=== PATIENT | male | born 1970 | race Caucasian/White ===

== ENCOUNTER 2017-01-18 19:41 | Emergency (ER) | payer OTHER ==
[~2017-01-18] VITALS: Ht 182.9 cm; Wt 80.0 kg
[~2017-01-18 19:41] MED LIST: PROT40TA PO
[2017-01-18 19:49] VITALS: BP 139/91; PULSE 59; RESP 16; TEMP 98; O2SAT 100
[2017-01-18] MEDS ORDERED: SODIUM CHLORIDE 0.9% FLUSH 10 ML FLUSH IV FLUSH PRN (21:30)
--- NOTE | 2017-01-18 21:53 | PD ---
HPI Chief Complaint: Flank/Kidney Pain Time Seen by Provider: 21:26 Travel History International Travel<30 days: No Contact w/Intl Traveler<30days: No Traveled to known affect area: No History of Present Illness HPI 46 yo M c/o RUQ pain with radiation to the high R flank for about 1 week. No fever. No n/v. No diarrhea. No dyspnea. Onset gradual. Timing constant. It is slightly worse with palpation. Pt underwent R renal sonogram to rule out renal stone, which yielded negative results. Severity moderate now. Pt denies visible hematuria. Pt reports trace RBCs on outpatient testing. PFSH Past Medical History Cancer: Yes (skin) Cardiovascular Problems: No Diabetes: No Endocrine: No Gastrointestinal Disorders: Yes (heartburn) Genitourinary: No Hepatitis: No Hiatal Hernia: No Immune Disorder: No Musculoskeletal: No Neurologic: No Psychiatric: No Respiratory: Yes (sleep apnea) Thyroid Disease: No Past Surgical History AICD: No Genitourinary Surgery: Yes (vasectomy) Joint Replacement: No Oral Surgery: Yes Pacemaker: No Other Surgery: Yes (SKIN CA REMOVED) Social History Alcohol Use: No Tobacco Use: No Substance Use: No Allergies-Medications (Allergen,Severity, Reaction): Coded Allergies: No Known Allergies (Unverified , 01/18/17) Reported Meds & Prescriptions Reported Meds & Active Scripts Active Lortab (Hydrocodone-Acetaminophen) 5-325 Mg Tab 1-2 Tab PO Q6H PRN Review of Systems Except as stated in HPI: all other systems reviewed are Neg General / Constitutional: No: Fever Physical Exam Narrative GENERAL: 46 yo M, WNWD, NAD SKIN: Warm and dry. HEAD: Atraumatic. Normocephalic. EYES: Pupils equal and round. No scleral icterus. No injection or drainage. ENT: No nasal bleeding or discharge. Mucous membranes pink and moist. NECK: Trachea midline. No JVD. CARDIOVASCULAR: Regular rate and rhythm. RESPIRATORY: No accessory muscle use. Clear to auscultation. Breath sounds equal bilaterally. GASTROINTESTINAL: Soft. Minimal tenderness to percussion R flank. MUSCULOSKELETAL: Extremities without clubbing, cyanosis, or edema. No obvious deformities. NEUROLOGICAL: Awake and alert. No obvious cranial nerve deficits. Motor grossly within normal limits. Five out of 5 muscle strength in the arms and legs. Normal speech. PSYCHIATRIC: Appropriate mood and affect; insight and judgment normal. Data Data Last Documented VS Vital Signs Date Time Temp Pulse Resp B/P (MAP) Pulse Ox O2 Delivery O2 Flow Rate FiO2 01/18/17 23:09 01/18/17 19:49 98.0 59 16 100 Room Air VS reviewed Orders Orders Complete Blood Count With Diff (01/18/17 21:26) Comprehensive Metabolic Panel (01/18/17 21:26) Lipase (01/18/17 21:26) Urinalysis - C+S If Indicated (01/18/17 21:) Ct Abd/Pel W/O Iv Contrast (01/18/17 21:26) Iv Access Insert/Monitor (01/18/17 21:) Sodium Chloride 0.9% Flush (Ns Flush) (01/18/17 21:30) Labs Laboratory Tests Test 01/18/17 21:28 01/18/17 21:30 White Blood Count 5.7 TH/MM3 Red Blood Count 4.89 MIL/MM3 Hemoglobin 14.0 GM/DL Hematocrit 42.1 % Mean Corpuscular Volume 86.2 FL Mean Corpuscular Hemoglobin 28.6 PG Mean Corpuscular Hemoglobin Concent 33.2 % Red Cell Distribution Width 14.1 % Platelet Count 144 TH/MM3 Mean Platelet Volume 10.3 FL Neutrophils (%) (Auto) 55.5 % Lymphocytes (%) (Auto) 34.3 % Monocytes (%) (Auto) 7.8 % Eosinophils (%) (Auto) 1.8 % Basophils (%) (Auto) 0.6 % Neutrophils # (Auto) 3.2 TH/MM3 Lymphocytes # (Auto) 2.0 TH/MM3 Monocytes # (Auto) 0.4 TH/MM3 Eosinophils # (Auto) 0.1 TH/MM3 Basophils # (Auto) 0.0 TH/MM3 CBC Comment DIFF FINAL Differential Comment Blood Urea Nitrogen 28 MG/DL Creatinine 0.89 MG/DL Random Glucose 118 MG/DL Total Protein 7.2 GM/DL Albumin 3.6 GM/DL Calcium Level 8.6 MG/DL Alkaline Phosphatase 74 U/L Aspartate Amino Transf (AST/SGOT) 18 U/L Alanine Aminotransferase (ALT/SGPT) 28 U/L Total Bilirubin 0.4 MG/DL Sodium Level 142 MEQ/L Potassium Level 4.2 MEQ/L Chloride Level 107 MEQ/L Carbon Dioxide Level 29.4 MEQ/L Anion Gap 6 MEQ/L Estimat Glomerular Filtration Rate 92 ML/MIN Lipase 252 U/L Urine Color YELLOW Urine Turbidity CLEAR Urine pH 5.5 Urine Specific Marcus 1.021 Urine Protein NEG mg/dL Urine Glucose (UA) NEG mg/dL Urine Ketones NEG mg/dL Urine Occult Blood SMALL Urine Nitrite NEG Urine Bilirubin NEG Urine Urobilinogen LESS THAN 2.0 MG/DL Urine Leukocyte Esterase NEG Urine RBC 6 /hpf Microscopic Urinalysis Comment CULT NOT INDICATED MDM Medical Decision Making Medical Screen Exam Complete: Yes Emergency Medical Condition: Yes Medical Record Reviewed: Yes Differential Diagnosis hepatobiliary dz, renal stone, pna, constipation Narrative Course CBC & BMP Diagram 01/18/17 21:28 Total Protein 7.2, Albumin 3.6, Calcium Level 8.6, Alkaline Phosphatase 74, Aspartate Amino Transf (AST/SGOT) 18, Alanine Aminotransferase (ALT/SGPT) 28, Total Bilirubin 0.4 Lipase normal Last 24 hours Impressions Abdomen/Pelvis CT 01/18/172125 Signed Impressions: Service Date/Time: Wednesday, January 18, 2017 21:46 - CONCLUSION: 1. No acute findings. Postoperative gastric sleeve procedure. No renal calculi or obstructive uropathy. 2. Indeterminate 9 mm exophytic lesion lower pole left kidney. Differential diagnosis includes a complex cyst or small solid lesion. This could be followed sonographically as an outpatient. Efrem Garcia MD L renal lesion discussed with patient and necessity of follow up discussed. Pt verbalized understanding and agreement to follow up. The patient is resting comfortably and feels better, is alert and in no distress. The patients results and examination findings were discussed. The repeat examination is unremarkable and benign. The history, exam, diagnostic testing, and current condition do not suggest any significant pathology to warrant further testing, continued ED treatment, admission, or surgical evaluation at this point. The vital signs have been stable. The patient does not have uncontrollable pain, intractable vomiting, or other significant symptoms. The patient's condition is stable and appropriate for discharge. The patient will pursue further outpatient evaluation with a primary care physician or other designated or consulting physician as indicated in the discharge instructions. The patient expressed understanding and was agreeable with this plan. Diagnosis Primary Impression: RUQ pain Additional Impressions: Right flank pain Left kidney mass Referrals: Primary Care Physician 2 days Additional Instructions: PLEASE FOLLOW UP WITH DR DAVIS FOR ADDITIONAL WORK UP FOR LEFT KIDNEY MASS. Med/Other Pt SpecificInfo: Prescription(s) given Scripts Hydrocodone-Acetaminophen (Lortab) 5-325 Mg Tab 1-2 TAB PO Q6H Y for PAIN SCALE 6 TO 10, #20 TAB 0 Refills Prov: Az Chapin MD 01/18/17 Disposition: 01 DISCHARGE HOME Condition: Stable Az Chapin MD Jan 18, 2017 21:53
[2017-01-18 22:11] LABS: BLOOD, URINE SMALL (NEG); COMMENT (UR) CULT NOT INDICATED; CULTURE IF INDICATED CULT NOT INDICATED; GLUCOSE,URINE NEG (NEG); KETONE, URINE NEG (NEG); NITRITE,URINE NEG (NEG); PH, URINE 5.5 (5.0-8.5); URINE COLOR YELLOW (YELLW/STRAW)
[2017-01-18 22:14] LABS: AUTOMATED NEUTROPHIL # 3.2 TH/MM3 (1.8-7.7); BASOPHIL % 0.6 % (0.0-2.0); EOSINOPHIL # 0.1 TH/MM3 (0-0.4); EOSINOPHIL % 1.8 % (0.0-4.0); HEMATOCRIT 42.1 % (39.0-51.0); HEMO FLAGS DIFF FINAL; LYMPH % 34.3 % (9.0-44.0); MEAN CELL VOLUME 86.2 FL (80.0-100.0); MEAN CORPUSCULAR HEMOGLOBIN 28.6 PG (27.0-34.0); MEAN CORPUSCULAR HGB CONC 33.2 % (32.0-36.0); MONO % 7.8 % (0.0-8.0); NEUT % 55.5 % (16.0-70.0); PLATELET COUNT 144 TH/MM3 (150-450); RED BLOOD COUNT 4.89 MIL/MM3 (4.50-5.90); RED CELL DISTRIBUTION WIDTH 14.1 % (11.6-17.2); WHITE BLOOD COUNT 5.7 TH/MM3 (4.0-11.0)
--- NOTE | 2017-01-18 22:15 | RADRPT ---
EXAM DATE/TIME: 01/18/2017 21:46 [facility] COMPARISON: No previous studies available for comparison. INDICATIONS : Right flank pain. ORAL CONTRAST: No oral contrast ingested. RADIATION DOSE: 8.99 CTDIvol (mGy) MEDICAL HISTORY : None SURGICAL HISTORY : Gastric sleeve procedure ENCOUNTER: Initial ACUITY: 1 week PAIN SCALE: 8/10 LOCATION: Right flank TECHNIQUE: Volumetric scanning of the abdomen and pelvis was performed. Using automated exposure control and ad justment of the mA and/or kV according to patient size, radiation dose was kept as low as reasonably achievable to obtain optimal diagnostic quality images. DICOM format image data is available electro nically for review and comparison. FINDINGS: LOWER LUNGS: The visualized lower lungs are clear. LIVER: Homogeneous density without lesion. There is no dilation of the biliary tree. No calcified gallston es. SPLEEN: Normal size without lesion. PANCREAS: Within normal limits. KIDNEYS: 9 mm exophytic lesion lower pole left kidney. ADRENAL GLANDS: Within normal limits. VASCULAR: There is no aortic aneurysm. BOWEL/MESENTERY: The stomach, small bowel, and colon demonstrate no acute abnormality. There is no free intraperitone al air or fluid. ABDOMINAL WALL: Within normal limits. RETROPERITONEUM: There is no lymphadenopathy. BLADDER: No wall thickening or mass. REPRODUCTIVE: Within normal limits. INGUINAL: There is no lymphadenopathy or hernia. MUSCULOSKELETAL: Within normal limits for patient age. CONCLUSION: 1. No acute findings. Postoperative gastric sleeve procedure. No renal calculi or obstructive uropath y. 2. Indeterminate 9 mm exophytic lesion lower pole left kidney. Differential diagnosis includes a comp barbara cyst or small solid lesion. This could be followed sonographically as an outpatient. Efrem Garcia MD on January 18, 2017 at 22:06 Board Certified Radiologist. This report was verified electronically.
[2017-01-18 22:29] LABS: ALT (GPT) 28 U/L (12-78); ANION GAP 6 MEQ/L (5-15); AST (GOT) 18 U/L (15-37); BICARBONATE 29.4 MEQ/L (21.0-32.0); BLOOD UREA NITROGEN 28 MG/DL (7-18); CHLORIDE 107 MEQ/L (98-107); GLOMERULAR FILTRATION RATE 92 ML/MIN (>89); POTASSIUM 4.2 MEQ/L (3.5-5.1); SODIUM (NA) 142 MEQ/L (136-145)
[2017-01-18 22:31] LABS: ALKALINE PHOSPHATASE 74 U/L (45-117); TOTAL BILIRUBIN ADULT 0.4 MG/DL (0.2-1.0)
[2017-01-18] MEDS ORDERED: HYDR-3533 PO (22:56)
== END 2017-01-18 23:14 | disposition home or self-care (01) ==
LOC: NEPK 19:41
DX: R10.11 Right upper quadrant pain (principal); N28.89 Other specified disorders of kidney and ureter
CPT/HCPCS: 74176; 80053; 81001; 83690; 85025; 99284